=== PATIENT | female | born 1965 | race Caucasian/White ===

== ENCOUNTER 2017-05-29 07:23 | Emergency (ER) | payer OTHER ==
[~2017-05-29] VITALS: Ht 170.2 cm; Wt 136.1 kg
[2017-05-29 07:33] VITALS: BP 157/120
--- NOTE | 2017-05-29 07:38 | NUR ---
PT AMBULATED TO BED 2
[2017-05-29] MEDS ORDERED: traMADol 50 MG TAB PO ONE (07:50)
--- NOTE | 2017-05-29 08:00 | NUR ---
pt cames to er with complaints of 10/10 pain in lower legs. Pt has been diagnosed with cellulitis in lower legs and informed staff that she has just finninshed a round of ABT and has just recently moved from [place] to [place] where she is under a new [facility] care and doesn not yet have a environmental services specialist.Lower legs are edemous with non pitting edema. legs are reddened, moist and oozing at this time. Pt also has a staged area on right lower leg. area very macerated and leaking yellow fluid. Awaiting wound care nurse evaluation of wound as per juan.
--- NOTE | 2017-05-29 08:04 | NUR ---
WOUND CARE NURSE CALLED AT [phone], VM LEFT.
--- NOTE | 2017-05-29 08:06 | NUR ---
RSO BUCKNER WAS CALLED, STATES WOUND CARE COMES IN AT 0800, HOWEVER NOT ANSWERING PHONE CALL. WILL CALL BACK IN 15MIN. DR RUTHANN GARCIAED.
--- NOTE | 2017-05-29 08:57 | NUR ---
PT B/P REMAINS HIGH AT 180/127. PT STATES THAT SHE DID NOT TAKE HER ANTI HYPERTENSIVES YET. DR. BEAVERS INFORMED AND AGREED THAT PT NEEDS TO TAKE HER PERCRIBED B/P MEDICATION, CARVEDILOL 25MG. PT TOOK HER MEDICATION AT THIS TIME AND WAS PLACED ON THE MONITOR. WILL CONTINUE TO MONITOR PT B/P AND VITAL SIGNS. SLIGHT ODOR NOTED FORM WOUND ON LEFT LOWER LEG. PT STATES PAIN IS 9 /10.
[2017-05-29] MEDS ORDERED: KETOROLAC 60 MG/2 ML VIAL IM ONE (09:05)
--- NOTE | 2017-05-29 09:15 | NUR ---
SOME POSITIVE EFFECTS OF TRAMADOL SHOT BUT PT IS STILL IN PAIN IN HER LEG 10/29. B/P 173/145. P 126 02 96. R 21.
[2017-05-29 10:48] VITALS: BP 185/122
--- NOTE | 2017-05-29 10:53 | NUR ---
Note sanyaargenis in EDM - 05/29/17 at 1056 by [email or web address] Patient discharged with v/s stable. Written and verbal after care instructions given and explained. Patient alert, oriented and verbalized understanding of instructions. Ambulatory with steady gait. All questions addressed prior to discharge. ID band removed. Patient advised to follow up with PMD. Rx of BACTRIM DS AND TRAMADOL given. Patient educated on indication of medication including possible reaction and side effects. Opportunity to ask questions provided and answered.
--- NOTE | 2017-05-29 10:56 | NUR ---
Patient discharged with B/P 185/122 HR 120 02 98% T 98.6. PT OK TO DISCHAGRE PER DR BILLS. WRITTEN and verbal after care instructions given and explained. PT UNDERTANDS THAT SHE NEEDS TO F/U WITH PRIMARY AND BATH MIXER A AT THIS TIME. LEGS ALSO REWRAPPED FOR PT AND PT WAS ABLE TO AMBULATE INDEPENDENTLY, SHE WILL BE TAKING THE BUS HOME. PT AOX 4 and verbalized understanding of instructions. Ambulatory with steady gait. All questions addressed prior to discharge. ID band removed. Patient advised to follow up with PMD. Rx of given. Patient educated on indication of medication including possible reaction and side effects. Opportunity to ask questions provided and answered.
== END 2017-05-29 10:56 | disposition home or self-care (01) ==
LOC: MED 07:23
DX: L97.929 Non-pressure chronic ulcer of unspecified part of left lower leg with unspecified severity (principal); I48.91 Unspecified atrial fibrillation; I10 Essential (primary) hypertension; Z88.5 Allergy status to narcotic agent
CPT/HCPCS: 96372; 99283; J1885